=== PATIENT | male | born 1990 | race Two or more races ===

== ENCOUNTER 2021-03-06 15:55 | Outpatient (AMBR) | payer BC, MEDICAID, SELFPAY ==
--- NOTE | 2021-03-06 18:31 | PT.OIERPT ---
PT OP Initial Eval Patient Information Visit Reasons: Vertigo Start of Care: 03/06/21 Date of Onset: 2 months ago Initial Assessment Subjective Pt is 31 yr old male who reports feeling lightheaded when he sits up x2 months. He started some BP meds about three months ago and didnt have ssx prior. Sometimes he gets lightheaded when he is walking but denies feeling like the room is spinning. PMH: HTN, DML knee sx Pt goal: to get rid of the lightheadedness Objective Fountain-Hallpike to B: negative Side to elbow and back up. Smooth pursuit: WNL Visual traction: WNL C/S ArOM: no dizziness with extension and flexion Assessment Pt had onset of lightheadedness with sitting up from supine but Fountain Hallpike testing was negative for BPPV. Ssx consistent with blood pressure fluctuations/orthostatic hypotension. Pt is not a candidate for BPPV therapy. Short Term and Care Home Goals Eval and D/C Treatment Plan Eval and d/c Certification Dates: 03/06/21 to 04/05/21 Office Procedures PT Procedures PT Date of Service: 03/06/21 OP PT Eval Mod Complex 30 minutes: Yes
== END 2021-03-06 23:59 | disposition home or self-care (01) ==
PROVIDERS: PCP Nurse Practitioner Primary Care; Referring Provider Nurse Practitioner Primary Care; Visit Provider Nurse Practitioner Primary Care
DX: R42 Dizziness and giddiness (principal); I10 Essential (primary) hypertension; E11.9 Type 2 diabetes mellitus without complications
CPT/HCPCS: 97162

== ENCOUNTER → 2024-06-14 | Outpatient (CLI) | payer BC, MEDICAID, SELFPAY ==
--- NOTE | 2024-06-14 08:36 | XR_ITS ---
Examination: Foot, left, 3 views Technique: AP, oblique, lateral views foot, 3 views Date and time of exam: June 14, 2024 0935 hours Comparison March 29, 2024 INDICATIONS: History fracture fifth metatarsal 03/29/2024 FINDINGS: Partial healing fracture fifth metatarsal, fracture line still quite evident on the oblique view with 2.7 mm offset at the main fracture site IMPRESSION: Partial healing fracture fifth metatarsal, fracture line still quite evident on the oblique view although bony callus is noted
== END | disposition home or self-care (01) ==
PROVIDERS: PCP Nurse Practitioner Family; Referring Provider Orthopaedic Surgery; Visit Provider Orthopaedic Surgery
DX: S92.355D Nondisplaced fracture of fifth metatarsal bone, left foot, subsequent encounter for fracture with routine healing (principal); X58.XXXD Exposure to other specified factors, subsequent encounter
CPT/HCPCS: 73630

== ENCOUNTER → 2024-08-02 | Outpatient (CLI) | payer BC, MEDICAID, SELFPAY ==
[2024-08-02 10:04] LABS: Basophils % (Auto) 1 % (0-2.5); Eosinophils # (Auto) 0.2 Thou/mm3 (0.0-0.5); Eosinophils % (Auto) 4 % (0-10); Hematocrit 44.1 % (41.0-53.0); Hemoglobin 15.1 g/dL (13.5-16.0); Immature Granulocytes % (Auto) 0 % (0-0); Immature Granulocytes Auto 0.01 Thou/mm3 (0.00-0.00); Lymphocytes # (Auto) 1.5 Thou/mm3 (1.0-4.8); Lymphocytes % (Auto) 35 % (10-50); Mean Corpuscular HGB Conc 34.2 g/dl (31.0-37.0); Mean Corpuscular Hemoglobin 32.4 pg (25.0-35.0); Mean Corpuscular Volume 95 fL (80-100); Monocytes # (Auto) 0.4 Thou/mm3 (0.0-0.8); Monocytes % (Auto) 10 % (0-12); Neutrophils # (Auto) 2.1 Thou/mm3 (1.8-7.7); Neutrophils % (Auto) 49 % (37-80); Nucleated Red Blood Cell % 0 /100 WBC (0); Platelet Count 261 Thou/mm3 (140-440); RDW Standard Deviation 43.6 fL (35.1-43.9); Red Blood Count 4.66 Miln/mm3 (4.50-5.90); White Blood Count 4.2 Thou/mm3 (3.8-10.6)
[2024-08-02 10:12] LABS: Glucose Estimated Average 114 mg/dL (80-131); Hemoglobin A1C 5.6 % Hgb (4.8-6.0)
[2024-08-02 11:20] LABS: Alanine Aminotransferase 34 U/L (10-49); Albumin, Serum 4.5 gm/dL (3.5-5.0); Albumin/Globulin Ratio 1.9 (1.2-2.2); Alkaline Phosphatase 80 U/L (46-116); Anion Gap 9 (7-16); Aspartate Amino Transferase 18 U/L (0-34); BUN/Creatinine Ratio 15 Ratio (12-20); Bilirubin,Total 1.4 mg/dL (0.3-1.2); Blood Urea Nitrogen 12 mg/dL (9-23); Calcium 9.7 mg/dL (8.3-10.6); Calcium (Corrected) 9.7 mg/dL (8.5-10.1); Carbon Dioxide 28.4 mMol/L (20.0-31.0); Chloride 101 mMol/L (98-107); Cholesterol 146 mg/dL (132-200); Creatinine (Component) 0.8 mg/dL (0.6-1.3); Globulin 2.4 gm/dL (2.3-3.5); Glucose 99 mg/dL (74-106); HDL Cholesterol 48 mg/dL (40-60); LDL Cholesterol,Calculated 81 mg/dL (0-130); Osmolality,Calculated 275 (275-295); Potassium 4.3 mMol/L (3.4-5.1); Sodium 138 mMol/L (136-145); Thyroid Stimulating Hormone 1.17 uIU/mL (0.55-4.78); Total Protein 6.9 gm/dL (5.7-8.2); Triglycerides 85 mg/dL (30-150); eGFR > 60 See Note
[2024-08-02 11:36] LABS: Syphilis Nonreactive (Nonreactive)
[2024-08-02 12:03] LABS: Hepatitis A Antibody IgM Non Reactive (Non React); Hepatitis B Core Antibody IgM Non Reactive (Non React); Hepatitis B Surface Antigen Non Reactive (Non React); Hepatitis C Antibody Non Reactive (Non React)
[2024-08-02 14:01] LABS: HIV (1&2) Antibody Rapid Non-Reactive
== END | disposition home or self-care (01) ==
LOC: COPL 08:08
PROVIDERS: PCP Nurse Practitioner Family; Referring Provider Nurse Practitioner Family; Visit Provider Nurse Practitioner Family
DX: E11.9 Type 2 diabetes mellitus without complications (principal); E66.01 Morbid (severe) obesity due to excess calories; I10 Essential (primary) hypertension; Z11.3 Encounter for screening for infections with a predominantly sexual mode of transmission
CPT/HCPCS: 36415; 80053; 80061; 80074; 83036; 84443; 85025; 86703; 86780

== ENCOUNTER 2025-03-10 05:52 | Emergency (ER) | payer BC, SELFPAY ==
[2025-03-10 05:52] VITALS: BP 140/93; PULSE 48; RESP 20; TEMP 36.7; O2SAT 96
[2025-03-10 05:53] VITALS: BMI 51.7
--- NOTE | 2025-03-10 06:16 | XR_ITS ---
Examination: Abdomen sonogram, Limited Date and time of exam: March 10, 2025, 0735 hrs. Indications: Right upper abdominal pain and nausea beginning today. Technique: Real-time gregory scale transabdominal sonographic images of the upper abdomen obtained. Findings: Multiple gallstones. Normal gallbladder wall. Normal common bile duct 0.2 cm. Pancreatic head prominent 3.6 cm. Liver 15.9 cm fatty infiltration smooth contour no focal liver lesions. Normal hepatopedal portal venous flow. Patent IVC. Impression: Cholelithiasis, negative for cholecystitis Prominent pancreatic head 3.6 cm, no pancreatitis is a clinical consideration, consider CT abdomen pelvis post intravenous contrast follow-up
[2025-03-10] MEDS: KETOROLAC INJ 60 MG/2 ML VIAL 30 MG IM (06:32)
[2025-03-10] MEDS: METOCLOPRAMIDE INJ 5 MG/ML VIAL 2 ML 10 MG IM (06:33)
--- NOTE | 2025-03-10 07:01 | PD.EDRME ---
Rapid Medical Screening Exam E Arrival date/time: 03/10/25 05:52 35-year-old male presents to the Emergency Department for complaint of right upper quadrant abdominal pain Chief Complaint: Abdominal Pain Vital signs: Vital Signs Temperature 98.1 F 03/10/25 05:52 Pulse Rate 48 L 03/10/25 05:52 Respiratory Rate 20 03/10/25 05:52 Blood Pressure 140/93 H 03/10/25 05:52 Pulse Oximetry (%) 96 03/10/25 05:52 Oxygen Delivery Method Room Air 03/10/25 05:52
[2025-03-10 07:09] LABS: Basophils # (Auto) 0.1 Thou/mm3 (0.0-0.2); Basophils % (Auto) 1 % (0-2.5); Eosinophils # (Auto) 0.2 Thou/mm3 (0.0-0.5); Eosinophils % (Auto) 3 % (0-10); Hematocrit 47.0 % (41.0-53.0); Hemoglobin 16.1 g/dL (13.5-16.0); Immature Granulocytes Auto 0.03 Thou/mm3 (0.00-0.00); Lymphocytes # (Auto) 1.7 Thou/mm3 (1.0-4.8); Lymphocytes % (Auto) 23 % (10-50); Mean Corpuscular HGB Conc 34.3 g/dl (31.0-37.0); Mean Corpuscular Hemoglobin 33.3 pg (25.0-35.0); Mean Corpuscular Volume 97 fL (80-100); Monocytes # (Auto) 0.6 Thou/mm3 (0.0-0.8); Monocytes % (Auto) 8 % (0-12); Neutrophils # (Auto) 4.8 Thou/mm3 (1.8-7.7); Neutrophils % (Auto) 65 % (37-80); Nucleated Red Blood Cell # 0.00 Thou/mm3 (0.00-0.00); Nucleated Red Blood Cell % 0 /100 WBC (0); Platelet Count 252 Thou/mm3 (140-440); RDW Standard Deviation 44.1 fL (35.1-43.9); Red Blood Count 4.84 Miln/mm3 (4.50-5.90); White Blood Count 7.4 Thou/mm3 (3.8-10.6)
[2025-03-10 07:29] LABS: Alanine Aminotransferase 29 U/L (10-49); Albumin, Serum 4.6 gm/dL (3.5-5.0); Albumin/Globulin Ratio 1.8 (1.2-2.2); Alkaline Phosphatase 73 U/L (46-116); Anion Gap 10 (7-16); Aspartate Amino Transferase 18 U/L (0-34); BUN/Creatinine Ratio 9 Ratio (12-20); Bilirubin,Total 0.6 mg/dL (0.3-1.2); Blood Urea Nitrogen 8 mg/dL (9-23); Calcium 10.1 mg/dL (8.3-10.6); Calcium (Corrected) 10.1 mg/dL (8.5-10.1); Carbon Dioxide 27.0 mMol/L (20.0-31.0); Chloride 104 mMol/L (98-107); Creatinine (Component) 0.9 mg/dL (0.6-1.3); Estimated Creatinine Clearance 168.4 mL/min (>60); Globulin 2.5 gm/dL (2.3-3.5); Glucose 142 mg/dL (74-106); Lipase 42 U/L (12-53); Osmolality,Calculated 281 (275-295); Potassium 4.8 mMol/L (3.4-5.1); Sodium 141 mMol/L (136-145); Total Protein 7.1 gm/dL (5.7-8.2); eGFR > 60 See Note
--- NOTE | 2025-03-10 08:00 | PD.EDABDPN ---
ED Abdominal Pain RME/HPI General Chief Complaint: Abdominal Pain Stated complaint: ABD PAIN Time seen by provider: 03/10/25 08:00 Arrival date/time: 03/10/25 05:52 35-year-old male presents to the Emergency Department for complaint of right upper quadrant abdominal pain ongoing x 1 day patient reports history of cholelithiasis Limitations: no limitations RME / HPI RME / HPI narrative: 03/10/25 05:52 35-year-old male presents to the Emergency Department for complaint of right upper quadrant abdominal pain Related Data Previous Rx's ?Medication ?Instructions ?Recorded ciprofloxacin HCl 250 mg tablet 250 mg PO BID #7 tabs 12/01/20 hydrocodone 5 mg-acetaminophen 325 1 tab PO BID PRN pain #10 tabs 03/10/25 mg tablet ibuprofen 800 mg tablet 800 mg PO TID PRN pain #30 tabs 03/10/25 ondansetron 4 mg disintegrating 4 mg PO Q8H PRN nausea and 03/10/25 tablet vomiting #10 tabs Allergies Allergy/AdvReac Type Severity Reaction Status Date / Time No Known Allergies Allergy Verified 03/29/24 08:05 Review of Systems Review of Systems Systems Reviewed: All systems reviewed, normal except as documented Constitutional Constitutional: Reports system reviewed and no additional complaints, except as documented, Denies fever(s) and Denies headache(s) Eyes Eyes: Reports system reviewed and no additional complaints, except as documented and Denies blurry vision ENT Ears, Nose, Mouth, and Throat: Reports system reviewed and no additional complaints, except as documented, Denies headache(s), Denies nasal congestion and Denies nasal discharge Cardiovascular Cardiovascular: Reports system reviewed and no additional complaints, except as documented, Denies chest pain and Denies dyspnea Respiratory Respiratory: Reports system reviewed and no additional complaints, except as documented, Denies chest congestion, Denies cough and Denies dyspnea Gastrointestinal Gastrointestinal: Reports system reviewed and no additional complaints, except as documented, Reports abdominal pain, Reports nausea and Reports vomiting Integumentary/Breasts Skin/Breast: Reports system reviewed and no additional complaints, except as documented and Denies rash Neurologic Neurologic: Reports system reviewed and no additional complaints, except as documented, Reports as per HPI and Denies headache(s) Past Medical History Past Medical History CARDIAC: Negative Congestive Heart Failure RESPIRATORY: Negative Chronic Obstructive Pulmonary Disease (COPD) GENITOURINARY: Negative Renal Disease ENDOCRINE: Negative Diabetes Mellitus Type 1 or Diabetes Mellitus Type 2 Social History SMOKING STATUS: Never smoker SUBSTANCE USE: does not use ED Exam General Limitations: Present no limitations General appearance: Present alert and in no apparent distress Head Head exam: Present atraumatic Eye Eye exam: Present normal appearance, PERRL and EOMI ENT ENT exam: Present normal exam, normal oropharynx and mucous membranes moist Neck Neck exam: Present normal inspection, full ROM and trachea midline Chest Chest inspection: Present normal inspection and symmetric chest wall rise Respiratory Respiratory exam: Present normal lung sounds bilaterally Cardiovascular Cardiovascular exam: Present regular rate, normal rhythm and normal heart sounds Abdominal Exam Abdominal exam: Present soft, tenderness and normal bowel sounds; Absent distention, guarding, rebound, rigidity or Giordano's sign Abdominal tenderness: Present RUQ Extremities Exam Extremities exam: Present normal inspection and full ROM Back Exam Back exam: Present normal inspection and full ROM Neurological Exam Neurological exam: Present alert, oriented X3 and CN II-XII intact Psychiatric Psychiatric exam: Present normal affect and normal mood Skin Skin exam: Present warm, dry, intact and normal color Course Quality Measures none Orders Category Date Time Status EKG (ED ONLY) *Do not use* NOW Care 03/10/25 06:05 Completed EKG (ED Only) Stat Exams 03/10/25 06:04 Stop Req US gall bladder Stat Exams 03/10/25 06:16 Completed CBC Stat Lab 03/10/25 06:54 Completed CMP [Comprehensive Metabolic Panel] Stat Lab 03/10/25 06:54 Completed Lipase Stat Lab 03/10/25 06:54 Completed Ketorolac Inj [Toradol Inj] Med 03/10/25 06:18 Discontinued 30 mg IM X1 ONE Metoclopramide Inj [Reglan Inj] Med 03/10/25 06:19 Discontinued 10 mg IM X1 ONE Vital Signs Vital signs: Vital Signs Temperature 98.1 F 03/10/25 05:52 Pulse Rate 48 L 03/10/25 05:52 Respiratory Rate 20 03/10/25 05:52 Blood Pressure 140/93 H 03/10/25 05:52 Pulse Oximetry (%) 96 03/10/25 05:52 Oxygen Delivery Method Room Air 03/10/25 05:52 O2 saturation 96% on room air within normal limits Abdominal Pain MDM MDM Narrative MDM Narrative:: 35-year-old male presents to the Emergency Department for complaint of right upper quadrant abdominal pain ongoing x 1 day patient reports history of cholelithiasis On exam and based on presentation and history patient most likely has cholelithiasis Lab work and imaging obtained consistent with cholelithiasis Patient given pain medication nausea medication Time reevaluation patient reports pain 0 out of 10 reports feeling significantly better reports he is due to go to jury duty and states to go to jury duty at this time Consultation: I spoke with Dr. Mi states he can see the patient in his office on an outpatient basis For worsening symptoms or concerns patient is instructed return immediately for further evaluation Patient data External records reviewed:: [facility] previous records Clinical information provided by:: patient Social determinants that could affect healthcare access:: none Patient has the following chronic illnesses:: See history How is presenting disease/condition affected by chronic disease/condition?: caused by Evaluation data The following diagnostics were reviewed and interpreted by me:: lab results and radiology exam(s) Lab and/or radiology exams considered but not ordered:: Labs radiology obtained Interpretation Summary: Cholelithiasis Medications / Prescriptions Medications or Prescriptions considered but not ordered:: Given Medication administrations:: Medication Administration History Discontinued Medications Ketorolac Tromethamine (Ketorolac Inj 60 Mg/2 Ml Vial) 30 mg IM X1 ONE Stop: 03/10/25 06:19 Last Admin: 03/10/25 06:32 Dose: 30 mg Documented By: CVL Metoclopramide HCl (Metoclopramide Inj 5 Mg/Ml Vial 2 Ml) 10 mg IM X1 ONE; Protocol Stop: 03/10/25 06:20 Last Admin: 03/10/25 06:33 Dose: 10 mg Documented By: CVL Given Consultations Consultation(s) initiated? (list below): No Diagnosis Differential diagnosis abdominal pain: abdominal pain, acute appendicitis, pancreatitis and small bowel obstruction Most likely diagnosis given after review of the tests above:: Abdominal pain Admission Indicated Admission indicated?: not indicated Admission Request Was there a request for admission?: No Disposition Plan Disposition Plan: Discharge Discharge Attestation Discharge Attestation: The patient and all family members were given an opportunity to ask questions and understood the discharge instructions. Discharge instructions specifically effects, indications for sooner follow up or return to the emergency department, and the expected course of current diagnosis. Patient condition: Stable Discharge Plan Plan Patient Disposition: HOME (Self Care) Discharge Disposition comment: Stable Prescriptions/Referrals Prescriptions/Med Rec: New ibuprofen 800 mg tablet 800 mg PO TID PRN (Reason: pain) Qty: 30 0RF hydrocodone-acetaminophen 5-325 mg tablet 1 tab PO BID MDD 10 PRN (Reason: pain) Qty: 10 0RF ondansetron 4 mg tablet,disintegrating 4 mg PO Q8H PRN (Reason: nausea and vomiting) Qty: 10 0RF No Action ciprofloxacin HCl 250 mg tablet 250 mg PO BID Qty: 7 0RF Referrals: Ninfa Mi MD [Physician, General Surgery] - 03/10/25 Problem List Clinical Impression: Gallstones Patient/Caregiver Discharge Instructions Education Materials: Treating Gallstones Additional Instructions: Please follow up with your primary care doctor in the next 24-48hrs for any worsening symptoms return here immediately Print Language: [place] Stand Alone Forms: [employer] Award Info., Work/School Release, Patient Portal Info Letter PA/BRE Supervising Physician NEVILLE/BRE Supervising Physician: Dr [email or web address]
--- NOTE | 2025-03-10 08:18 | PC.NURSE ---
PT HAS BEEN REMINDED x 2 ABOUT URINE AND STILL UNABLE TO VOID
[2025-03-10 08:41] VITALS: BP 132/87; PULSE 62; RESP 18; TEMP 36.6; O2SAT 98
== END 2025-03-10 08:46 | disposition home or self-care (01) ==
PROVIDERS: Nurse Practitioner Primary Care; Emergency Provider Family Medicine; PCP Nurse Practitioner Family
DX: K80.20 Calculus of gallbladder without cholecystitis without obstruction (principal)
CPT/HCPCS: 36415; 76705; 80053; 81001; 83690; 85025; 93005; 96372; 99283; J1885; J2765